=== PATIENT | female | born 1980 | race Asian ===

== ENCOUNTER 2017-04-12 10:48 | Emergency (ER) | payer OTHER ==
[~2017-04-12] VITALS: Ht 152.4 cm; Wt 81.6 kg
[2017-04-12 11:02] VITALS: TEMP 98.7
[2017-04-12 11:37] VITALS: BP 128/70
== END 2017-04-12 11:39 | disposition home or self-care (01) ==
LOC: ED 10:48
DX: S40.861A Insect bite (nonvenomous) of right upper arm, initial encounter (principal); L03.113 Cellulitis of right upper limb; W57.XXXA Bitten or stung by nonvenomous insect and other nonvenomous arthropods, initial encounter; Y92.098 Other place in other non-institutional residence as the place of occurrence of the external cause
CPT/HCPCS: 99281

== ENCOUNTER 2018-04-22 23:38 | Emergency (ER) | payer OTHER ==
[~2018-04-22] VITALS: Ht 154.9 cm; Wt 88.5 kg
[2018-04-23 01:33] VITALS: BP 129/62; TEMP 98.1
== END 2018-04-23 01:33 | disposition home or self-care (01) ==
LOC: ED 23:38
DX: K59.09 Other constipation (principal); R10.84 Generalized abdominal pain; R11.0 Nausea; M79.605 Pain in left leg; M79.602 Pain in left arm
CPT/HCPCS: 74022; 99283

== ENCOUNTER 2018-05-01 11:46 | Outpatient (CLI) | payer OTHER | END 2018-05-01 22:58 | disposition home or self-care (01) | LOC: RAD 11:46 | DX: K59.09 Other constipation (principal) ==

== ENCOUNTER 2022-07-29 08:30 | Outpatient (CLI) | payer OTHER | END 2022-07-29 19:05 | disposition home or self-care (01) | LOC: MAMMO 08:30 | PROVIDERS: ATTEND Internal Medicine | DX: Z12.31 Encounter for screening mammogram for malignant neoplasm of breast (principal) ==

== ENCOUNTER 2022-08-24 21:34 | Emergency (ER) | payer OTHER ==
[~2022-08-24] VITALS: Ht 154.9 cm; Wt 90.7 kg
[2022-08-24 23:30] VITALS: BP 131/79; TEMP 98.3
== END 2022-08-24 23:30 | disposition home or self-care (01) ==
LOC: ED 21:34
DX: H66.93 Otitis media, unspecified, bilateral (principal); J02.9 Acute pharyngitis, unspecified
CPT/HCPCS: 87502; 87651; 99283

== ENCOUNTER 2022-09-04 16:41 | Observation (INO) | payer OTHER ==
[~2022-09-04] VITALS: Ht 160 cm; Wt 85.4 kg
[2022-09-04 16:50] VITALS: BP 113/73; TEMP 98.8
[2022-09-04 17:30] VITALS: BP 101/73
[2022-09-04 17:33] LABS: PLATELET COUNT 272 K/uL (152-353)
[2022-09-04 17:44] LABS: POTASSIUM 3.7 mmol/L (3.6-5.2)
[2022-09-04 18:30] VITALS: BP 111/78
[2022-09-04 19:30] VITALS: BP 120/82
[2022-09-04 20:00] VITALS: BP 122/82
[2022-09-04 20:46] VITALS: BP 109/76; TEMP 98.8; Ht 160 cm; Wt 85.4 kg
[2022-09-05] VITALS: BP 107/78; TEMP 99.1
[2022-09-05 03:53] VITALS: BP 111/71; TEMP 98
[2022-09-05 05:10] LABS: PLATELET COUNT 196 K/uL (152-353)
[2022-09-05 05:37] LABS: POTASSIUM 3.5 mmol/L (3.6-5.2)
[2022-09-05 08:00] VITALS: BP 107/73; TEMP 97.6
[2022-09-05] MEDS ORDERED: Tylenol PO (08:00)
[2022-09-05 12:00] VITALS: BP 95/59; TEMP 98.5
[2022-09-05] MEDS ORDERED: ULTRAM 50MG TAB PO (14:03)
[2022-09-05] MEDS ORDERED: ONDA4TAB3 SL (14:05)
[2022-09-05] MEDS ORDERED: DICYCLOMINE HYD20 MG PO (14:15)
[2022-09-05 16:00] VITALS: BP 123/84; TEMP 98.1
== END 2022-09-05 17:05 | disposition home or self-care (01) ==
LOC: ED 16:41 → MED/SURG 19:37
PROVIDERS: ADMIT Nurse Practitioner Family; ATTEND Family Medicine
DX: K52.89 Other specified noninfective gastroenteritis and colitis (principal); R11.2 Nausea with vomiting, unspecified; R19.7 Diarrhea, unspecified
CPT/HCPCS: 36415; 80048; 80053; 82150; 83605; 83690; 83735; 85027; 87324; 87449; 94760; 96360; 96361; 96365; 96366; 96367; 96375; 99221; 99284; G0378; J0744; J2405; J2550; J3490